=== PATIENT | female | born 1945 | race Caucasian/White ===

== ENCOUNTER 2024-01-11 16:40 | Emergency (ER) | payer MEDICARE, SELFPAY ==
[2024-01-11] VITALS (11 sets, daily range): BP systolic 120–129; BP diastolic 62–70; PULSE 73–104; RESP 16–17; TEMP 37.1; O2SAT 94–99; BMI 18.6
--- NOTE | 2024-01-11 17:21 | ED.ANXIETY ---
HPI - Anxiety General Chief Complaint: Anxiety <Cedric Zepeda MD - Last Filed: 01/12/24 07:06> Stated Complaint: Racing heartrate, nausea <Cedric Zepeda MD - Last Filed: 01/12/24 07:06> Time Seen by Provider: 01/11/24 17:07 <Cedric Zepeda MD - Last Filed: 01/12/24 07:06> History of Present Illness HPI narrative: Patient is a 78-year-old woman who lives in [facility] who presents with increased agitation and feeling like her heart is racing. Patient recently had her Paxil changed to a much lower dose of sertraline. She has been feeling increasingly anxious during this titration. She does not really eat well. She does stay hydrated for the most part. She has had no chest pain no shortness a breath orthopnea no PND no nausea no vomiting. Patient has significant dementia and we did rely on record review and visiting with her senior auditor for most of her history. Upon arrival she has a normal sinus rhythm rate of 74 I do see on chart review shows history of paroxysmal atrial fibrillation as well as cardiomyopathy. No further history available. <Cedric Zepeda MD - Last Filed: 01/12/24 07:06> Related Data Home Medications: Home Medications Medication Instructions Recorded Confirmed acetaminophen 500 mg tablet 1,000 mg PO .Q8 01/11/24 01/11/24 (Acetaminophen Extra Strength) carbidopa ER 25 mg-levodopa 100 mg 1 tab PO TID 01/11/24 01/11/24 tablet,extended release sertraline 25 mg tablet 75 mg PO DAILY 01/11/24 01/11/24 tramadol 25 mg tablet 25 mg PO DAILY PRN 01/11/24 01/11/24 <Cedric Zepeda MD - Last Filed: 01/12/24 07:06> Allergies/Adverse Reactions: Allergies Allergy/AdvReac Type Severity Reaction Status Date / Time No Known Drug Allergies Allergy Verified 01/11/24 17:04 <Cedric Zepeda MD - Last Filed: 01/12/24 07:06> Review of Systems Status of ROS: Reports: 10 or more systems reviewed and unremarkable except as noted in History and below <Cedric Zepeda MD - Last Filed: 01/12/24 07:06> [facility] Medical History: Medical History Parkinsonism ?G20.C - Parkinsonism, unspecified (ICD-10) Dementia ?F03.90 - Unspecified dementia, unspecified severity, without behavioral disturbance, psychotic disturbance, mood disturbance, and anxiety (ICD-10) Cardiomyopathy ?I42.9 - Cardiomyopathy, unspecified (ICD-10) <Cedric Zepeda MD - Last Filed: 01/12/24 07:06> Exam Narrative: Exam Narrative: EXAM GENERAL: Patient appears comfortable and well. Symptoms of parkinsonism noted. EYES: No scleral icterus. ENT: Tympanic membranes and oropharynx normal. THYROID: no thyroid nodules or thyromegaly. LYMPH: No supraclavicular or cervical lymphadenopathy. SKIN: Visible skin seen during exam normal or with benign process only. EXT: No dependent lower extremity pedal edema. HEART: Regular rate and rhythm with no murmurs, rubs, or gallops. LUNGS: Clear to auscultation bilaterally with no crackles or wheezes. ABD: Soft, non tender, non distended. PSYCH: Good eye contact, speech is not pressured. Neurologic pill rolling tremor noted in the upper extremities bilaterally. <Cedric Zepeda MD - Last Filed: 01/12/24 07:06> Const: Vital Signs, click to edit/add: Vital Signs - 24 hr 01/11/24 17:04 01/11/24 17:18 01/11/24 17:32 Temperature 98.8 F Pulse Rate 77 104 H Pulse Rate [Pulse Oximeter] 76 Respiratory Rate 17 Blood Pressure [Le ft Upper Arm] 129/62 Pulse Oximetry 98 97 95 Oxygen Delivery Me thod Room Air 01/11/24 17:45 01/11/24 18:00 01/11/24 18:15 Temperature Pulse Rate 75 73 76 Pulse Rate [Pulse Oximeter] Respiratory Rate Blood Pressure [Le ft Upper Arm] Pulse Oximetry 99 97 96 Oxygen Delivery Me thod 01/11/24 18:30 01/11/24 18:45 01/11/24 19:00 Temperature Pulse Rate 78 78 77 Pulse Rate [Pulse Oximeter] Respiratory Rate Blood Pressure [Le ft Upper Arm] Pulse Oximetry 94 95 98 Oxygen Delivery Me thod 01/11/24 19:30 01/11/24 19:31 Temperature 98.8 F 98.8 F Pulse Rate Pulse Rate [Pulse Oximeter] 74 74 Respiratory Rate 16 16 Blood Pressure [Le ft Upper Arm] 120/70 120/70 Pulse Oximetry 98 Oxygen Delivery Me thod Room Air <Cedric Zepeda MD - Last Filed: 01/12/24 07:06> Vital Signs, click to edit/add: Vital Signs - 24 hr 01/11/24 17:04 01/11/24 17:18 01/11/24 17:32 Temperature 98.8 F Pulse Rate 77 104 H Pulse Rate [Pulse Oximeter] 76 Respiratory Rate 17 Blood Pressure [Le ft Upper Arm] 129/62 Pulse Oximetry 98 97 95 Oxygen Delivery Me thod Room Air 01/11/24 17:45 01/11/24 18:00 01/11/24 18:15 Temperature Pulse Rate 75 73 76 Pulse Rate [Pulse Oximeter] Respiratory Rate Blood Pressure [Le ft Upper Arm] Pulse Oximetry 99 97 96 Oxygen Delivery Me thod 01/11/24 18:30 01/11/24 18:45 01/11/24 19:00 Temperature Pulse Rate 78 78 77 Pulse Rate [Pulse Oximeter] Respiratory Rate Blood Pressure [Le ft Upper Arm] Pulse Oximetry 94 95 98 Oxygen Delivery Me thod 01/11/24 19:30 01/11/24 19:31 Temperature 98.8 F 98.8 F Pulse Rate Pulse Rate [Pulse Oximeter] 74 74 Respiratory Rate 16 16 Blood Pressure [Le ft Upper Arm] 120/70 120/70 Pulse Oximetry 98 Oxygen Delivery Me thod Room Air <Keyla Negrete MD - Last Filed: 01/11/24 19:24> Course Course ED Course: Patient seen and examined. EKG personally reviewed. CBC UA basic metabolic panel pending. <Cedric Zepeda MD - Last Filed: 01/12/24 07:06> Reevaluation(s) Time of Reevaluation #1: 19:23 <Keyla Negrete MD - Last Filed: 01/11/24 19:24> Reevaluation #1: Reviewed with patient and her relative that is here that the CBC and the chemistries are showing no concerning abnormalities. Patient would like to go home. She does seems stable. We discussed we do not have a urinalysis but they really do not have significant concerns at this time. This could be done through [employer] if her provider felt it is needed. She will be seen her provider there tomorrow, has neurology appointment next week. <Keyla Negrete MD - Last Filed: 01/11/24 19:24> Vital Signs Vital signs: Initial Vital Signs Temperature 98.8 F 01/11/24 17:04 Temperature Source Temporal Artery Scan 01/11/24 17:04 Pulse Rate 76 01/11/24 17:04 Respiratory Rate 17 01/11/24 17:04 Blood Pressure 129/62 01/11/24 17:04 Blood Pressure Mean 84 01/11/24 17:04 Pulse Oximetry 98 01/11/24 17:04 Oxygen Delivery Method Room Air 01/11/24 17:04 Vital Signs Temperature 98.8 F 01/11/24 17:04 Pulse Rate 76 01/11/24 17:04 Respiratory Rate 17 01/11/24 17:04 Blood Pressure 129/62 01/11/24 17:04 Pulse Oximetry 98 01/11/24 17:04 Oxygen Delivery Method Room Air 01/11/24 17:04 Temperature 98.8 F 01/11/24 19:31 Pulse Rate 74 01/11/24 19:31 Respiratory Rate 16 01/11/24 19:31 Blood Pressure 120/70 01/11/24 19:31 Pulse Oximetry 98 01/11/24 19:30 Oxygen Delivery Method Room Air 01/11/24 19:30 <Cedric Zepeda MD - Last Filed: 01/12/24 07:06> Initial Vital Signs Temperature 98.8 F 01/11/24 17:04 Temperature Source Temporal Artery Scan 01/11/24 17:04 Pulse Rate 76 01/11/24 17:04 Respiratory Rate 17 01/11/24 17:04 Blood Pressure 129/62 01/11/24 17:04 Blood Pressure Mean 84 01/11/24 17:04 Pulse Oximetry 98 01/11/24 17:04 Oxygen Delivery Method Room Air 01/11/24 17:04 Vital Signs Temperature 98.8 F 01/11/24 17:04 Pulse Rate 76 01/11/24 17:04 Respiratory Rate 17 01/11/24 17:04 Blood Pressure 129/62 01/11/24 17:04 Pulse Oximetry 98 01/11/24 17:04 Oxygen Delivery Method Room Air 01/11/24 17:04 Temperature 98.8 F 01/11/24 19:31 Pulse Rate 74 01/11/24 19:31 Respiratory Rate 16 01/11/24 19:31 Blood Pressure 120/70 01/11/24 19:31 Pulse Oximetry 98 01/11/24 19:30 Oxygen Delivery Method Room Air 01/11/24 19:30 <Keyla Negrete MD - Last Filed: 01/11/24 19:24> MDM - Anxiety Lab Data Labs: Lab Results 01/11/24 Range/Units 17:30 WBC 6.42 (4.50-11.00) K/uL RBC 4.05 (4.00-5.20) m/uL Hgb 12.4 (12.0-16.0) gm/dL Hct 38.7 (33.0-51.0) % MCV 96 (80-100) fL MCH 31 (26-34) pg MCHC 32 (32-36) gm/dL RDW Coeff of [place]ando 14.2 (11.5-15.5) % Plt Count 276 (140-440) K/uL Neut % (Auto) 69.9 (42.0-72.0) % Lymph % (Auto) 20.9 (20-44) % [place] % (Auto) 8.4 (0.0-11.0) % Eos % (Auto) 0.3 (0.0-7.0) % Baso % (Auto) 0.3 (0.0-3.0) % Neut # (Auto) 4.49 (1.7-7.0) K/uL Lymph # (Auto) 1.34 (0.90-2.90) K/uL [place] # (Auto) 0.50 (0.00-0.90) K/UL Eos # (Auto) 0.02 (0.00-0.50) K/uL Baso # (Auto) 0.02 (0.00-0.30) K/uL Abs Immat Gran (auto) 0.01 (0.00-0.30) K/uL Imm/Tot Granulo (auto) 0.2 % Sodium 134 L (135-149) mmol/L Potassium 3.9 (3.6-5.1) mmol/L Chloride 101 (96-114) mmol/L Carbon Dioxide 26 (20-32) mmol/L Anion Gap 7 (7-15) mEq/L BUN 27 (7-30) mg/dL Creatinine 1.0 (0.5-1.5) mg/dL Estimated Creat Clear 36.95 Estimated GFR 57 ml/min Glucose 124 H (60-115) mg/dL Calcium 9.9 (8.4-10.6) mg/dL <Cedric Zepeda MD - Last Filed: 01/12/24 07:06> Lab Results 01/11/24 Range/Units 17:30 WBC 6.42 (4.50-11.00) K/uL RBC 4.05 (4.00-5.20) m/uL Hgb 12.4 (12.0-16.0) gm/dL Hct 38.7 (33.0-51.0) % MCV 96 (80-100) fL MCH 31 (26-34) pg MCHC 32 (32-36) gm/dL RDW Coeff of [place] 14.2 (11.5-15.5) % Plt Count 276 (140-440) K/uL Neut % (Auto) 69.9 (42.0-72.0) % Lymph % (Auto) 20.9 (20-44) % [place] % (Auto) 8.4 (0.0-11.0) % Eos % (Auto) 0.3 (0.0-7.0) % Baso % (Auto) 0.3 (0.0-3.0) % Neut # (Auto) 4.49 (1.7-7.0) K/uL Lymph # (Auto) 1.34 (0.90-2.90) K/uL [place] # (Auto) 0.50 (0.00-0.90) K/UL Eos # (Auto) 0.02 (0.00-0.50) K/uL Baso # (Auto) 0.02 (0.00-0.30) K/uL Abs Immat Gran (auto) 0.01 (0.00-0.30) K/uL Imm/Tot Granulo (auto) 0.2 % Sodium 134 L (135-149) mmol/L Potassium 3.9 (3.6-5.1) mmol/L Chloride 101 (96-114) mmol/L Carbon Dioxide 26 (20-32) mmol/L Anion Gap 7 (7-15) mEq/L BUN 27 (7-30) mg/dL Creatinine 1.0 (0.5-1.5) mg/dL Estimated Creat Clear 36.95 Estimated GFR 57 ml/min Glucose 124 H (60-115) mg/dL Calcium 9.9 (8.4-10.6) mg/dL <Keyla Negrete MD - Last Filed: 01/11/24 19:24> Discharge Plan Discharge Clinical Impression: Anxiety <Cedric Zepeda MD - Last Filed: 01/12/24 07:06> Patient Disposition: Home w/ Parent or Adult <Cedric Zepeda MD - Last Filed: 01/12/24 07:06> Condition: Stable <Cedric Zepeda MD - Last Filed: 01/12/24 07:06> Instructions: Anxiety (ED) <Cedric Zepeda MD - Last Filed: 01/12/24 07:06> Additional Instructions: Continue current medications Keep outpatient follow up. <Cedric Zepeda MD - Last Filed: 01/12/24 07:06> Activity Level: No Restrictions <Cedric Zepeda MD - Last Filed: 01/12/24 07:06> No Restrictions <Keyla Negrete MD - Last Filed: 01/11/24 19:24> Discharge Diet: Regular <Cedric Zepeda MD - Last Filed: 01/12/24 07:06> Regular <Keyla Negrete MD - Last Filed: 01/11/24 19:24> Prescriptions: No Action acetaminophen [Acetaminophen Extra Strength] 500 mg tablet 1,000 mg PO .Q8 carbidopa-levodopa 25-100 mg tablet extended release 1 tab PO TID sertraline 25 mg tablet 75 mg PO DAILY tramadol 25 mg tablet 25 mg PO DAILY PRN <Cedric Zepeda MD - Last Filed: 01/12/24 07:06> Follow Up/Referrals: Provider,Not a Local [Primary Care Provider] - <Cedric Zepeda MD - Last Filed: 01/12/24 07:06> Stand Alone Forms: MyHealth Info Instructions <Cedric Zepeda MD - Last Filed: 01/12/24 07:06>
[2024-01-11 17:47] LABS: Basophils Absolute Auto 0.02 K/uL (0.00-0.30); Basophils Percent Auto 0.3 % (0.0-3.0); Eosinophils Absolute Auto 0.02 K/uL (0.00-0.50); Eosinophils Percent Auto 0.3 % (0.0-7.0); Hematocrit 38.7 % (33.0-51.0); Hemoglobin* 12.4 gm/dL (12.0-16.0); Immature Granulocytes Abs Auto 0.01 K/uL (0.00-0.30); Immature Granulocytes Pct Auto 0.2 %; Lymphocytes Absolute Auto 1.34 K/uL (0.90-2.90); Lymphocytes Percent Auto 20.9 % (20-44); Mean Corpuscular HGB Conc 32 gm/dL (32-36); Mean Corpuscular Hemoglobin 31 pg (26-34); Mean Corpuscular Volume 96 fL (80-100); Monocytes Percent Auto 8.4 % (0.0-11.0); Neutrophils Absolute Auto 4.49 K/uL (1.7-7.0); Neutrophils Percent Auto 69.9 % (42.0-72.0); Platelet Count* 276 K/uL (140-440); RDW Coefficient of Variation % 14.2 % (11.5-15.5); Red Blood Count 4.05 m/uL (4.00-5.20); White Blood Count* 6.42 K/uL (4.50-11.00)
[2024-01-11 17:51] LABS: Slide Review Reflex No
[2024-01-11 18:12] LABS: Chloride* 101 mmol/L (96-114); Potassium* 3.9 mmol/L (3.6-5.1); Sodium* 134 mmol/L (135-149)
[2024-01-11 18:15] LABS: Anion Gap 7 mEq/L (7-15); Blood Urea Nitrogen* 27 mg/dL (7-30); Carbon Dioxide* 26 mmol/L (20-32); Est. Creatinine Clearance* 36.95; Estimated Glomerular Filt Rate 57 ml/min
[2024-01-11 18:16] LABS: Calcium* 9.9 mg/dL (8.4-10.6); Glucose* 124 mg/dL (60-115)
== END 2024-01-11 19:32 | disposition home or self-care (01) ==
PROVIDERS: Emergency Provider Internal Medicine
DX: F41.9 Anxiety disorder, unspecified (principal)
CPT/HCPCS: 36415; 80048; 81003; 85025; 99283